=== PATIENT | male | born 1965 | race American Indian/Alaskan Native ===

== ENCOUNTER 2016-12-22 18:34 | Observation (INO) | payer OTHER ==
--- NOTE | 2016-12-22 19:53 | C.PDOC ---
History Of Present Illness 51 y/o male presents to ED with c/o of several episodes of enuresis over the past 3 weeks. Patient reports 2 episodes of urine incontinence last night. Patient states that during the day he is able to control urine and bowel movements. . Denies fever, chills, nausea, vomiting or any trauma Time Seen by Provider: 12/22/16 19:52 Chief Complaint (Nursing): Male Genitourinary History Per: Patient History/Exam Limitations: no limitations Onset/Duration Of Symptoms: Days (7) Current Symptoms Are (Timing): Still Present Severity: Mild Pain Scale Rating Of: 1 Quality Of Discomfort: Unable To Describe Associated Symptoms: Urinary Symptoms (enuresis). denies: Fever, Chills, Nausea , Vomiting Alleviating Factors: None Recent travel outside of the [place]: No Additional History Per: Patient Past Medical History Reviewed: Historical Data, Nursing Documentation, Vital Signs Vital Signs: Last Vital Signs Temp 97.7 F 12/22/16 21:59 Pulse 60 12/22/16 21:59 Resp 18 12/22/16 21:59 BP 163/88 H 12/22/16 21:59 Pulse Ox 96 12/22/16 22:28 - Medical History PMH: HTN, Multiple Sclerosis Family History: States: No Known Family Hx - Social History Hx Alcohol Use: Yes Hx Substance Use: No (unable to assess) - Immunization History Hx Tetanus Toxoid Vaccination: No Hx Influenza Vaccination: No Hx Pneumococcal Vaccination: No Review Of Systems Except As Marked, All Systems Reviewed And Found Negative. Constitutional: Negative for: Fever, Chills ENT: Negative for: Throat Pain Cardiovascular: Negative for: Chest Pain Respiratory: Negative for: Shortness of Breath Gastrointestinal: Negative for: Nausea, Vomiting, Abdominal Pain Genitourinary: Positive for: Incontinence (multiple episodes of enuresis) Musculoskeletal: Negative for: Back Pain Skin: Negative for: Rash, Lesions Neurological: Positive for: Weakness (generalized) Psych: Negative for: Anxiety Physical Exam - Physical Exam Appears: Non-toxic, No Acute Distress, Other (awake, alert, oriented) Skin: Warm, Dry Head: Atraumatic Eye(s): bilateral: Normal Inspection Oral Mucosa: Moist Chest: Symmetrical Cardiovascular: Rhythm Regular Respiratory: No Rales, No Rhonchi, No Wheezing Gastrointestinal/Abdominal: Soft, No Tenderness, No Distention Rectal: Rectal Tone (good rectal sphincter tone), No Tenderness Back: Normal Inspection Male Genital: Other ( Pt did not allow for full prostate exam. Cremasteric reflexes intact. ) Extremity: Normal ROM Extremity: Bilateral: Atraumatic, Normal Color And Temperature Neurological/Psych: Oriented x3, Normal Speech, Normal Cognition Gait: Unsteady ED Course And Treatment - Laboratory Results Result Diagrams: 12/22/16 20:12 12/22/16 20:12 O2 Sat by Pulse Oximetry: 96 (RA) Pulse Ox Interpretation: Normal - CT Scan/US CT SPINE LUMBAR SPINE Other Rad Studies (CT/US): Read By Radiologist, Radiology Report Reviewed CT/US Interpretation: IMPRESSION: 1. Left L3 and L4 mildly displaced transverse process subacute fractures. 2. At L4-L5, disc bulge, ligamentum flavum infolding, and facet arthropathy severe canal and mild. bilateral foraminal stenosis. Progress Note: Lumbar spine CT, labs, urinalysis. Disposition Discussed With : Tiffanie Harrington Comment: accepted the pt on her service and took over the care at 10:50 PM Doctor Will See Patient In The: Hospital Counseled Patient/Family Regarding: Studies Performed, Diagnosis - Disposition Disposition: HOSPITALIZED Disposition Time: 19:53 Condition: FAIR - POA Present On Arrival: None - Clinical Impression Clinical Impression: Incontinence of feces, Multiple sclerosis, Incontinence of urine - Scribe Statement The provider has reviewed the documentation as recorded by the Nila Davis Provider Scribe Attestation: All medical record entries made by the Shivaniibperfecto were at my direction and personally dictated by me. I have reviewed the chart and agree that the record accurately reflects my personal performance of the history, physical exam, medical decision making, and the department course for this patient. I have also personally directed, reviewed, and agree with the discharge instructions and disposition. Decision To Admit - Pt Status Changed To: Hospital Disposition Of: Inpatient - Admit Certification Admit to Inpatient:: After my assessment, the patient will require hospitalization for at least two midnights. This is because of the severity of symptoms shown, intensity of services needed, and/or the medical risk in this patient being treated as an outpatient. - InPatient: Physician Admission Certification: I certify that this patient requires 2 or more midnights of care for the following reason:: After my assessment, the patient will require hospitalization for at least two midnights. This is because of the severity of symptoms shown, intensity of services needed, and/or the medical risk in this patient being treated as an outpatient. - . Bed Request Type: Regular Admitting Physician: Tiffanie Harrington Patient Diagnosis: Incontinence of feces, Incontinence of urine, Multiple sclerosis
[2016-12-22 20:17] LABS: BASO % 0.4 % (0.0-2.0); EOS # 0.2 K/uL (0.0-0.7); EOS % 1.9 % (0.0-4.0); HEMATOCRIT 44.1 % (35.0-51.0); LYMPH % 23.4 % (20.0-40.0); MEAN CELL VOLUME 89.8 fL (80.0-94.0); MEAN CORPUSCULAR HEMOGLOBIN 30.6 pg (27.0-31.0); MEAN CORPUSCULAR HGB CONC 34.1 g/dL (33.0-37.0); MEAN PLATELET VOLUME 9.2 fL (7.2-11.7); MONO # 1.4 K/uL (0.0-0.8); MONO % 16.2 % (0.0-10.0); RED CELL DISTRIBUTION WIDTH 13.4 % (11.5-14.5); WHITE BLOOD COUNT 8.6 K/uL (4.8-10.8)
[2016-12-22 20:22] LABS: RBC URINE 1 /hpf (0-3); URINE BACTERIA OCC (<OCC); URINE BILIRUBIN NEGATIVE (NEGATIVE); URINE BLOOD NEGATIVE (NEGATIVE); URINE GLUCOSE (UA) NORMAL (Normal); URINE KETONE TRACE mg/dL (NEGATIVE); URINE LEUKOCYTE ESTERASE NEG Leu/uL (Negative); URINE PROTEIN 1+ mg/dL (NEGATIVE); WBC URINE 2 /hpf (0-5)
[2016-12-22 20:23] LABS: CHLORIDE 101 mmol/L (98-107); POTASSIUM 3.5 mmol/L (3.6-5.2); SODIUM 139 mmol/L (132-148)
[2016-12-22 20:25] LABS: GFR AFRICAN-AMERICAN > 60
[2016-12-22 20:26] LABS: ALB/GLOB RATIO 1.2 (1.0-2.1); ALKALINE PHOSPHATASE 59 U/L (38-126); ALT/SGPT 13 U/L (21-72); AST/SGOT 26 U/L (17-59); BILIRUBIN,TOTAL 0.2 mg/dL (0.2-1.3); BLOOD UREA NITROGEN 16 mg/dL (9-20); CALCIUM 8.7 mg/dl (8.6-10.4); CARBON DIOXIDE 23 mmol/L (22-30); GLUCOSE,RANDOM 93 mg/dL (75-110); TOTAL PROTEIN 6.8 g/dL (6.3-8.3)
[2016-12-22 20:28] LABS: URINE COLOR YELLOW (YELLOW)
[2016-12-23] MEDS ORDERED: Folic Acid 1 MG, Thiamine 100 MG, Multivitamin (MVI) 10 ML in Dextrose 5% In Water 1,00... IV ONE (01:00)
[2016-12-23 01:39] VITALS: RESP 20
[2016-12-23 08:18] VITALS: BP 176/97; PULSE 67; TEMP 98.3; O2SAT 99
--- NOTE | 2016-12-23 17:19 | CT ---
PROCEDURE: CT Lumbar Spine without contrast HISTORY: incontinence, hx of MS COMPARISON: None. TECHNIQUE: Axial computed tomography images were obtained of the lumbar spine without the use of intravenous contrast. Coronal and sagittal reformatted images were created and reviewed. Radiation dose: Total exam DLP = 437 mGy-cm. This CT exam was performed using one or more of the following dose reduction techniques: Automated exposure control, adjustment of the mA and/or kV according to patient size, and/or use of iterative reconstruction technique. FINDINGS: VERTEBRAE: Mildly displaced fractures are seen of the left L3 and L4 transverse processes. There is some healing with callus formation around the fractures DISCS/SPINAL CANAL/NEURAL FORAMINA: L1-2: Unremarkable. L2-3: Unremarkable. L3-4: Unremarkable. L4-5: There is asymmetric disc bulging to the right at L4-5. There is moderate facet arthropathy L5-S1: There is disc degeneration with loss of disc height and disc bulging. There is bilateral foraminal narrowing PARASPINAL SOFT TISSUES: Unremarkable. OTHER FINDINGS: The report concurs with the preliminary [facility] report IMPRESSION: Asymmetric disc bulge to the right at L4-5. Moderate facet arthropathy Disc degeneration at L5-S1 with loss of disc height and disc bulging
--- NOTE | 2016-12-24 08:24 | HP ---
CHIEF COMPLAINT: Cannot control urine and bowel movement and have back pain. HISTORY OF PRESENT ILLNESS: The patient is a 51-year-old male, homeless, living in half-way. Came with complaining of severe episodes of enuresis over the past 3 weeks. The patient reports 2 episodes of urine incontinence last night. The patient states that during the day he is able to control urine and bowel movement. Denies fevers, chills, nausea, vomiting, any trauma. No hematuria, no hematochezia. PAST MEDICAL HISTORY: Hypertension, multiple sclerosis. FAMILY HISTORY: Father and mother noncontributory. HABITS: Alcohol yes, smoking yes. Substance use unable to assess. The patient is smoking almost 1 pack per day. REVIEW OF SYSTEMS: The patient is seen and examined on the bedside in the room. He was sitting, holding packet of cigarettes in his hand. Education done that he cannot smoke here. Nicotine patch given. His back pain is getting better. Nurse, Armida, spoke to patient's mother who promised will take to his half-way place and collect his belongings. He understands. PHYSICAL EXAMINATION: VITAL SIGNS: Temperature 97.7, pulse 80 , respiratory rate 18, blood pressure 163/88. HEENT: Head normocephalic, atraumatic. Eyes: PERRLA. Extraocular muscles intact. Conjunctivae pink. Eyelids unremarkable. Nose patent. NECK: Supple. No carotid bruits, no JVD, no thyromegaly. CHEST: Bilaterally symmetrical. HEART: S1, S2 positive. LUNGS: Clear to auscultation. ABDOMEN: Soft. Bowel sounds positive. No organomegaly. EXTREMITIES: No edema, no cyanosis. RECTAL: Good rectal sphincter tone as per ED. LABORATORIES: White blood cells 8.6, hemoglobin 15.0, hematocrit 44.1, platelets 234. Sodium 139, potassium 3.5, BUN 16, creatinine 0.8, glucose 93. AST, ALT is within normal limits. ASSESSMENT AND PLAN: The patient is a 51-year-old male with proteinuria, hypokalemia, replaced, was admitted for back pain, urinary and stool incontinence. CAT scan of the back was done, showed asymmetric disk bulging to the right at L4-L5, moderate facet arthropathy, disk degeneration at L5-S1 with loss of disk height and disk bulging. History of hypertension, smoking, ethanol abuse, multiple sclerosis. According to him, his doctors are in [place]. We admitted the patient. Neurology consult called with Dr. Tito Murrieta and plan was to call neurosurgery also, but the patient wants to go against medical advice. Education done by me and by patient's nurse, Armida. Even they called house physician for education. Physical therapy was ordered. The patient signed against medical advice and wants to follow up with his own doctor in [place], but he was informed if situation will continue or will increase, call 911, come back to the hospital. Tiffanie Harrington MD cc: [id number] TT: 12/24/2016 08:23:52 en MTDD
--- NOTE | 2016-12-24 08:58 | DS ---
The patient was admitted on 12/22/2016 middle of the night, left against medical advice on 12/23/2016 . I saw patient only once. So, the patient left against medical advice within 24 hours. For detail s, see my history and physical. Tiffanie Harrington MD cc: [id number] TT: 12/24/2016 08:57:56 mn
[2016-12-25] MEDS ORDERED: Pneumococcal 23-Valent Vaccine IM ONE (10:00)
== END 2016-12-23 13:46 | disposition left against medical advice (07) ==
LOC: C.ER 18:34 → C.9E 22:51 → INTOOBSV 22:51 → C.3T 12-23 00:05
PROVIDERS: ADMIT Internal Medicine; ATTEND Internal Medicine
DX: R15.9 Full incontinence of feces (principal); R32 Unspecified urinary incontinence; G35 Multiple sclerosis; I10 Essential (primary) hypertension; M54.9 Dorsalgia, unspecified

== ENCOUNTER 2016-12-24 19:07 | Emergency (ER) | payer OTHER ==
[2016-12-24 19:17] VITALS: BP 136/77; PULSE 62; RESP 20; TEMP 97.4; O2SAT 98
--- NOTE | 2016-12-24 19:43 | C.PDOC ---
History Of Present Illness 51 y/o M p/w request for prescription for walker. He states that is all he is here for. He states he was here yesterday and his walker was misplaced and now he needs a prescription for one. He denies fever or chest pain. Time Seen by Provider: 12/24/16 19:39 Chief Complaint (Nursing): Medical Clearance Past Medical History Vital Signs: Last Vital Signs Temp 97.4 F L 12/24/16 19:14 Pulse 62 12/24/16 19:14 Resp 20 12/24/16 19:14 BP 136/77 12/24/16 19:14 Pulse Ox 98 12/24/16 19:14 - Medical History PMH: HTN, Multiple Sclerosis Denies: Chronic Kidney Disease Family History: States: No Known Family Hx - Social History Hx Alcohol Use: Yes Hx Substance Use: No - Immunization History Hx Tetanus Toxoid Vaccination: No Hx Influenza Vaccination: No Hx Pneumococcal Vaccination: No Review Of Systems Except As Marked, All Systems Reviewed And Found Negative. Constitutional: Negative for: Fever Cardiovascular: Negative for: Chest Pain Physical Exam - Physical Exam Appears: No Acute Distress Head: Atraumatic Oral Mucosa: Moist Neck: Supple Cardiovascular: Rhythm Regular Respiratory: No Accessory Muscle Use Neurological/Psych: Other (No focal deficit) ED Course And Treatment O2 Sat by Pulse Oximetry: 98 Medical Decision Making Medical Decision Making: Given prescription for walker with seat. Given walker now so he can ambulate from the ER. Disposition - Disposition Disposition: HOME/ ROUTINE Disposition Time: 19:41 Condition: STABLE Prescriptions: Walker [Ultra-Light Rollator] 1 each ONCE #1 each - Clinical Impression Clinical Impression: Multiple sclerosis
== END 2016-12-24 19:57 | disposition home or self-care (01) ==
LOC: C.ER 19:07
DX: G35 Multiple sclerosis (principal); I10 Essential (primary) hypertension; F17.210 Nicotine dependence, cigarettes, uncomplicated